=== PATIENT | female | born 1965 | race Two or more races ===

== ENCOUNTER → 2024-12-25 | Outpatient (CLI) | payer MEDICAID, SELFPAY ==
--- NOTE | 2024-12-25 13:00 | XR_ITS ---
Examination: Breast ultrasound, unilateral, left complete Date and time of exam: December 25, 2024 1308 hours INDICATIONS: Left breast nodule 12:00 position 8 mm on ultrasound 06/26/2024 Technique: Real-time vincent scale ultrasonographic imaging performed left breast including all 4 quadrants as well as nipple retroareolar and axillary region. Findings: 12:00 nodule circumscribed 5 x 9 mm 4 cm left axillary lymph node IMPRESSION: BI-RADS Category 3: Probably benign findings One additional 6 month left breast sonogram follow-up is needed to document stability of 12:00 nodule described above
== END | disposition home or self-care (01) ==
PROVIDERS: PCP Physician Assistant; Referring Provider Specialist; Visit Provider Specialist
DX: N63.25 Unspecified lump in the left breast, overlapping quadrants (principal)
CPT/HCPCS: 76641

== ENCOUNTER → 2025-01-08 | Outpatient (CLI) | payer MEDICAID, SELFPAY ==
--- NOTE | 2025-01-08 15:45 | XR_ITS ---
Examination: Diagnostic digital mammography, bilateral Computer aided detection 3-D breast Tomosynthesis, bilateral Date and time of exam: 01/08/2025, 3:54 PM Comparisons: March 2020 through December 2023 Indications:Bilateral breast pain Technique: Nonmagnified MLO, CC views of the breasts to been obtained, reconstructed from 3-D Tomosynthesis images. R2 computer aided detection program utilized for evaluation of suspicious masses and/or abnormal calcifications. 3-D Tomosynthesis images obtained. Findings: There are scattered areas of fibroglandular density. No evidence of abnormal masses or suspicious calcifications. Impression: BI-RADS category 1: Negative findings (within normal) Recommend 1 year follow-up mammogram
== END | disposition home or self-care (01) ==
PROVIDERS: PCP Physician Assistant; Referring Provider Specialist; Visit Provider Specialist
DX: R92.313 Mammographic fatty tissue density, bilateral breasts (principal)
CPT/HCPCS: 77062; 77066; G0279

== ENCOUNTER → 2025-03-16 | Outpatient (CLI) | payer MEDICAID, SELFPAY ==
[2025-03-13 13:48] LABS: Basophils # (Auto) 0.1 Thou/mm3 (0.0-0.2); Basophils % (Auto) 1 % (0-2.5); Eosinophils # (Auto) 0.1 Thou/mm3 (0.0-0.5); Eosinophils % (Auto) 2 % (0-10); Hematocrit 36.7 % (36.0-46.0); Hemoglobin 12.9 g/dL (12.0-16.0); Immature Granulocytes % (Auto) 0 % (0-0); Lymphocytes # (Auto) 1.7 Thou/mm3 (1.0-4.8); Lymphocytes % (Auto) 37 % (10-50); Mean Corpuscular HGB Conc 35.1 g/dl (31.0-37.0); Mean Corpuscular Hemoglobin 30.4 pg (25.0-35.0); Mean Corpuscular Volume 87 fL (80-100); Monocytes # (Auto) 0.4 Thou/mm3 (0.0-0.8); Monocytes % (Auto) 10 % (0-12); Neutrophils # (Auto) 2.4 Thou/mm3 (1.8-7.7); Neutrophils % (Auto) 51 % (37-80); Nucleated Red Blood Cell % 0 /100 WBC (0); Platelet Count 232 Thou/mm3 (140-440); RDW Standard Deviation 41.7 fL (36.4-46.3); Red Blood Count 4.24 Miln/mm3 (4.00-5.20); White Blood Count 4.6 Thou/mm3 (3.6-11.0)
[2025-03-13 13:54] LABS: Prothrombin Time 10.8 Seconds (9.0-12.2)
[2025-03-13 13:56] LABS: Partial Thromboplastin Time 26.5 Seconds (22.0-36.0)
--- NOTE | 2025-03-16 10:30 | XR_ITS ---
Examinations: Ultrasound-guided percutaneous left axillary biopsy Left axillary sonography limited Exam date and time: March 16, 2025 1033 hours Enlarged left axillary lymph node on left breast sonogram December 25, 2024. Informed consent provided. Technique: A timeout was completed verifying correct patient, procedure, site, positioning, and special equipment if applicable Informed consent provided. The patient was placed in a supine position for the axillary biopsy Sonographic images of the breast were performed for localization of the axillary lymph node The patient's breast was prepped and draped in sterile fashion. Maximum sterile barrier technique, hand hygiene, ultrasound sterile technique 1% lidocaine was used to anesthetize the skin and breast adjacent to the suspicious nodule. Utilizing ultrasonographic guidance, 4 core biopsies were obtained of the axillary nodule utilizing an 18-gauge BioPince needle. The specimens appears satisfactory. The patient tolerated the procedure well and there were no complications. Impression: Successful ultrasound-guided percutaneous biopsy enlarged left axillary lymph node
== END | disposition home or self-care (01) ==
LOC: SDIM 10:16
PROVIDERS: PCP Physician Assistant; Referring Provider Radiology Diagnostic Radiology; Visit Provider Radiology Diagnostic Radiology
DX: R59.0 Localized enlarged lymph nodes (principal); Z01.812 Encounter for preprocedural laboratory examination
CPT/HCPCS: 19083; 36415; 85025; 85610; 85730

== ENCOUNTER → 2025-09-07 | Outpatient (CLI) | payer MEDICAID, SELFPAY ==
--- NOTE | 2025-09-07 14:30 | XR_ITS ---
Examination: Breast ultrasound complete, bilateral Date and time of exam: September 07, 2025, 1446 hours INDICATIONS: History of left axillary biopsy - March 16, 2025 Technique: Real-time grayscale ultrasonographic imaging bilateral breasts, including all 4 quadrants as well as nipple retroareolar and axillary regions. Findings: Sonographic images right breast 10:00 nodule hyperechoic 3 x 4 mm Sonographic images left breast 12:00 nodule circumscribed 7 x 9 mm No pathologic axillary lymph nodes IMPRESSION: BI-RADS Category 3: Probably benign findings Recommend 1 additional left breast sonogram follow-up in 6 months to document stability of 12:00 nodule described above
== END | disposition home or self-care (01) ==
PROVIDERS: PCP Physician Assistant; Referring Provider Specialist; Visit Provider Specialist
DX: N63.25 Unspecified lump in the left breast, overlapping quadrants (principal)
CPT/HCPCS: 76641